=== PATIENT | female | born 1965 | race Caucasian/White ===

== ENCOUNTER 2017-01-17 15:28 | Inpatient (IN) | payer OTHER ==
[~2017-01-17] VITALS: Ht 170.2 cm; Wt 87.6 kg
[2017-01-17 18:56] LABS: BASOPHIL % 0.3 % (0-2); PLATELET COUNT 229 x10^3mcL (130-400); RED CELL DISTRIBUTION WIDTH 13.9 % (11.5-14.5)
[2017-01-17 18:59] LABS: CALCIUM 8.9 mg/dL (8.5-10.1); CARBON DIOXIDE 28.5 mmol/L (21-32); CHLORIDE SERUM 109 mmol/L (98-107); CREATININE SERUM 0.8 mg/dL (0.6-1.0); GFR1 > 60 mL/min; GLUCOSE SERUM 112 mg/dL (74-106); POTASSIUM SERUM 3.7 mmol/L (3.5-5.1); SODIUM SERUM 146 mmol/L (136-145)
[2017-01-17 19:03] LABS: ALKALINE PHOSPHATASE 77 U/L (46-116); ALT/SGPT 22 U/L (14-59); AST/SGOT 13 U/L (15-37); BILIRUBIN TOTAL 0.2 mg/dL (0.20-1.00); TOTAL PROTEIN, SERUM 7.4 g/dL (6.4-8.2)
[2017-01-17 19:28] LABS: AMPHETAMINE QUAL UR NONE DETECTED (NEG <=1000)
[2017-01-17] MEDS ORDERED: ALBUTEROL0.63 MG/3 NEB (19:55)
[2017-01-17] MEDS ORDERED: ATIVAN1 MG PO (19:55)
[2017-01-17 20:39] VITALS: BP 133/82
[2017-01-17 21:36] LABS: CHOLESTEROL/HDL RATIO 3.4
[2017-01-17 21:44] LABS: FREE T4 1.04 ng/dL (0.76-1.46); FREE THYROXINE INDEX 2.7 ug/dL (1.4-4.5); T3 TOTAL 1.09 ng/mL; T4(THYROXINE) 7.8 ug/dL (4.7-13.3)
[2017-01-18 03:59] LABS: BASOPHIL % 0.5 % (0-2); PLATELET COUNT 199 x10^3mcL (130-400); RED CELL DISTRIBUTION WIDTH 13.9 % (11.5-14.5)
[2017-01-18 04:11] LABS: CALCIUM 8.8 mg/dL (8.5-10.1); CARBON DIOXIDE 27.8 mmol/L (21-32); CHLORIDE SERUM 109 mmol/L (98-107); CREATININE SERUM 0.6 mg/dL (0.6-1.0); GFR1 > 60 mL/min; GLUCOSE SERUM 90 mg/dL (74-106); MAGNESIUM 2.2 mg/dL (1.8-2.4); PHOSPHOROUS 4.3 mg/dL (2.5-4.9); POTASSIUM SERUM 3.9 mmol/L (3.5-5.1); SODIUM SERUM 144 mmol/L (136-145)
[2017-01-18 06:31] VITALS: BP 112/69
[2017-01-18 07:59] LABS: microscopic required? NO
[2017-01-18 09:30] LABS: UA SPECIFIC GRAVITY 1.025 (1.005-1.035); urine erythrocyte NEGATIVE (NEGATIVE)
[2017-01-18 09:58] VITALS: BP 109/74
[2017-01-18 10:13] VITALS: BP 112/70
[2017-01-18 13:28] VITALS: BP 98/64
[2017-01-18 18:05] VITALS: BP 99/59
[2017-01-18 21:26] VITALS: BP 91/64
[2017-01-19 05:26] VITALS: BP 95/59
[2017-01-19 05:28] VITALS: BP 109/65
[2017-01-19 05:33] VITALS: BP 95/59
[2017-01-19 06:23] LABS: BASOPHIL % 0.4 % (0-2); PLATELET COUNT 198 x10^3mcL (130-400); RED CELL DISTRIBUTION WIDTH 13.8 % (11.5-14.5)
[2017-01-19 06:26] LABS: CALCIUM 8.5 mg/dL (8.5-10.1); CARBON DIOXIDE 27.1 mmol/L (21-32); CHLORIDE SERUM 111 mmol/L (98-107); CREATININE SERUM 0.7 mg/dL (0.6-1.0); GFR1 > 60 mL/min; GLUCOSE SERUM 90 mg/dL (74-106); MAGNESIUM 1.9 mg/dL (1.8-2.4); PHOSPHOROUS 3.8 mg/dL (2.5-4.9); SODIUM SERUM 144 mmol/L (136-145)
[2017-01-19 10:33] VITALS: BP 95/53
[2017-01-19] MEDS ORDERED: LIPI10 PO (11:14)
[2017-01-19] MEDS ORDERED: ECO81 PO (11:16)
[2017-01-19] MEDS ORDERED: PANTOPRAZOLE SO40 M1 PO (11:18)
[2017-01-19 11:53] VITALS: BP 95/53
== END 2017-01-19 12:59 | disposition home or self-care (01) | DRG 243 ==
LOC: ED 15:28 → DU 19:50
PROVIDERS: Emergency Medicine; ADMIT Family Medicine
DX: K21.9 Gastro-esophageal reflux disease without esophagitis (principal); N17.0 Acute kidney failure with tubular necrosis; E87.0 Hyperosmolality and hypernatremia; E87.8 Other disorders of electrolyte and fluid balance, not elsewhere classified; F41.9 Anxiety disorder, unspecified; B18.2 Chronic viral hepatitis C; E78.5 Hyperlipidemia, unspecified; Z68.30 Body mass index [BMI] 30.0-30.9, adult; Z87.891 Personal history of nicotine dependence; E66.9 Obesity, unspecified; F19.10 Other psychoactive substance abuse, uncomplicated; B19.20 Unspecified viral hepatitis C without hepatic coma; Z90.710 Acquired absence of both cervix and uterus
CPT/HCPCS: 80307; 83880; 84439; 94150; C9113; J2060; J7030; J7620; Q0092

== ENCOUNTER 2018-05-01 18:35 | Inpatient (IN) | payer MEDICAID ==
[~2018-05-01] VITALS: Ht 170.2 cm; Wt 82.1 kg
[~2018-05-01 18:35] MED LIST: ALBUTEROL0.63 MG/3 NEB; ATIVAN1 MG PO; ECO81 PO; LIPI10 PO; PANTOPRAZOLE SO40 M1 PO
[2018-05-01 18:47] VITALS: Ht 170.2 cm; Wt 82.1 kg
[2018-05-01 19:23] LABS: BASOPHIL % 0.5 % (0-2); PLATELET COUNT 229 x10^3mcL (130-400); RED CELL DISTRIBUTION WIDTH 13.1 % (11.5-14.5)
[2018-05-01 19:33] LABS: CALCIUM 9.2 mg/dL (8.5-10.1); CARBON DIOXIDE 27.2 mmol/L (21-32); CHLORIDE SERUM 108 mmol/L (98-107); CREATININE SERUM 0.7 mg/dL (0.6-1.0); GFR1 > 60 mL/min; GLUCOSE SERUM 90 mg/dL (74-106); POTASSIUM SERUM 3.6 mmol/L (3.5-5.1); SODIUM SERUM 141 mmol/L (136-145)
[2018-05-01 19:37] LABS: ALKALINE PHOSPHATASE 67 U/L (46-116); ALT/SGPT 14 U/L (14-59); AST/SGOT 22 U/L (15-37); BILIRUBIN TOTAL 0.22 mg/dL (0.20-1.00); TOTAL PROTEIN, SERUM 7.3 g/dL (6.4-8.2)
[2018-05-01 22:16] LABS: UA SPECIFIC GRAVITY 1.025 (1.005-1.035); microscopic required? YES; urine erythrocyte TRACE (NEGATIVE)
[2018-05-01 22:22] LABS: AMPHETAMINE QUAL UR NONE DETECTED (See below)
[2018-05-02 02:39] LABS: MAGNESIUM 2.2 mg/dL (1.8-2.4); PHOSPHOROUS 3.6 mg/dL (2.5-4.9)
[2018-05-02 02:41] VITALS: BP 153/99
[2018-05-02 02:44] LABS: CHOLESTEROL/HDL RATIO 2.9
[2018-05-02 02:51] LABS: FREE T4 0.99 ng/dL (0.76-1.46); FREE THYROXINE INDEX 1.9 ug/dL (1.4-4.5); T4(THYROXINE) 5.8 ug/dL (4.7-13.3)
[2018-05-02 03:23] LABS: T3 TOTAL 1.14 ng/mL
[2018-05-02 06:08] VITALS: BP 114/70
[2018-05-02 07:20] LABS: BASOPHIL % 0.5 % (0-2); PLATELET COUNT 217 x10^3mcL (130-400); RED CELL DISTRIBUTION WIDTH 13.6 % (11.5-14.5)
[2018-05-02 07:45] LABS: CARBON DIOXIDE 28.4 mmol/L (21-32); CHLORIDE SERUM 108 mmol/L (98-107); CREATININE SERUM 0.6 mg/dL (0.6-1.0); GFR1 > 60 mL/min; GLUCOSE SERUM 87 mg/dL (74-106); POTASSIUM SERUM 3.6 mmol/L (3.5-5.1); SODIUM SERUM 143 mmol/L (136-145)
[2018-05-02 09:57] VITALS: BP 137/82
[2018-05-02 18:25] VITALS: BP 122/84
[2018-05-02 20:03] VITALS: BP 105/56
[2018-05-03 05:00] VITALS: BP 116/72
[2018-05-03 05:33] LABS: CALCIUM 8.9 mg/dL (8.5-10.1); CHLORIDE SERUM 107 mmol/L (98-107); CREATININE SERUM 0.6 mg/dL (0.6-1.0); GFR1 > 60 mL/min; GLUCOSE SERUM 88 mg/dL (74-106); SODIUM SERUM 140 mmol/L (136-145)
[2018-05-03 05:42] LABS: BASOPHIL % 0.5 % (0-2); PLATELET COUNT 226 x10^3mcL (130-400); RED CELL DISTRIBUTION WIDTH 13.6 % (11.5-14.5)
[2018-05-03 07:28] VITALS: BP 112/72
[2018-05-03 11:24] VITALS: BP 112/72
[2018-05-03 12:37] VITALS: BP 118/68
== END 2018-05-03 13:15 | disposition home or self-care (01) | DRG 817 ==
LOC: ED 18:35 → MU 05-02 00:57
PROVIDERS: Family Medicine; Specialist
DX: T42.4X2A Poisoning by benzodiazepines, intentional self-harm, initial encounter (principal); N17.0 Acute kidney failure with tubular necrosis; F33.1 Major depressive disorder, recurrent, moderate; T51.0X2A Toxic effect of ethanol, intentional self-harm, initial encounter; F10.20 Alcohol dependence, uncomplicated; F12.10 Cannabis abuse, uncomplicated; F16.10 Hallucinogen abuse, uncomplicated; B18.2 Chronic viral hepatitis C; K21.9 Gastro-esophageal reflux disease without esophagitis; F41.1 Generalized anxiety disorder; I10 Essential (primary) hypertension; E78.5 Hyperlipidemia, unspecified; Z68.23 Body mass index [BMI] 23.0-23.9, adult; Y92.009 Unspecified place in unspecified non-institutional (private) residence as the place of occurrence of the external cause
CPT/HCPCS: 83880; 84439; G0480; J7030; Q0092

== ENCOUNTER 2018-08-23 12:02 | Emergency (ER) | payer MEDICAID ==
[~2018-08-23] VITALS: Ht 170.2 cm; Wt 92.5 kg
[2018-08-23 12:03] VITALS: Ht 170.2 cm; Wt 92.5 kg
[2018-08-23 14:23] LABS: BASOPHIL % 0.4 % (0-2); PLATELET COUNT 260 x10^3mcL (130-400); RED CELL DISTRIBUTION WIDTH 13.3 % (11.5-14.5)
[2018-08-23 14:30] LABS: CALCIUM 9.6 mg/dL (8.5-10.1); CARBON DIOXIDE 29.1 mmol/L (21-32); CHLORIDE SERUM 103 mmol/L (98-107); CREATININE SERUM 0.7 mg/dL (0.6-1.0); GFR1 > 60 mL/min; GLUCOSE SERUM 96 mg/dL (74-106); POTASSIUM SERUM 4.1 mmol/L (3.5-5.1); SODIUM SERUM 139 mmol/L (136-145)
[2018-08-23 14:35] LABS: ALBUMIN 4.1 g/dL (3.4-5.0); ALKALINE PHOSPHATASE 71 U/L (46-116); ALT/SGPT 21 U/L (14-59); AST/SGOT 17 U/L (15-37); BILIRUBIN TOTAL 0.2 mg/dL (0.20-1.00); LIPASE 133 IU/L (73-393); TOTAL PROTEIN, SERUM 8.1 g/dL (6.4-8.2)
[2018-08-23 16:12] VITALS: BP 120/73
== END 2018-08-23 16:13 | disposition home or self-care (01) ==
LOC: ED 12:02
PROVIDERS: Emergency Medicine
DX: K80.20 Calculus of gallbladder without cholecystitis without obstruction (principal); F32.9 Major depressive disorder, single episode, unspecified; Z90.710 Acquired absence of both cervix and uterus; Z98.890 Other specified postprocedural states
CPT/HCPCS: J1885; Q0092; Q0162

== ENCOUNTER 2019-05-29 13:22 | Emergency (ER) | payer MEDICAID ==
[~2019-05-29] VITALS: Ht 170.2 cm; Wt 89.8 kg
[2019-05-29 13:28] VITALS: Ht 170.2 cm; Wt 89.8 kg
[2019-05-29 16:43] VITALS: BP 123/71
== END 2019-05-29 16:43 | disposition home or self-care (01) ==
LOC: ED 13:22
DX: S79.911A Unspecified injury of right hip, initial encounter (principal); S09.8XXA Other specified injuries of head, initial encounter; F41.9 Anxiety disorder, unspecified; Z88.6 Allergy status to analgesic agent; Z88.5 Allergy status to narcotic agent; Z90.710 Acquired absence of both cervix and uterus; W01.198A Fall on same level from slipping, tripping and stumbling with subsequent striking against other object, initial encounter; Y93.89 Activity, other specified; Y92.098 Other place in other non-institutional residence as the place of occurrence of the external cause; Y99.8 Other external cause status
CPT/HCPCS: J1885